=== PATIENT | female | born 1945 | race Caucasian/White ===

== ENCOUNTER → 2024-08-12 08:49 | Day surgery (SDC) | payer MEDICARE, SELFPAY | LOC: GI 08:49 | PROVIDERS: ATTENDING PHYSICIAN Internal Medicine Gastroenterology | DX: Z12.11 Encounter for screening for malignant neoplasm of colon (principal); D12.2 Benign neoplasm of ascending colon; K57.30 Diverticulosis of large intestine without perforation or abscess without bleeding; K64.8 Other hemorrhoids; Z86.0100 Personal history of colon polyps, unspecified | CPT/HCPCS: 45385; 88305 ==